=== PATIENT | female | born 1995 | race American Indian/Alaskan Native ===

== ENCOUNTER 2019-11-25 01:05 | Emergency (ER) | payer SELFPAY ==
[2019-11-25 01:16] VITALS: BP 110/72
[2019-11-25 03:44] LABS: Bacteria,Urine 1+ /HPF (Negative); Bilirubin,Urine NEG (Negative); Blood,Urine NEG (Negative); Color,Urine Yellow (Yellow); Mucus,Urine 1+ /HPF; Protein,Urine <15 mg/dL mg/dL (Negative); Urobilinogen,Urine < 2.0 mg/dL (<2.0)
[2019-11-25 03:46] LABS: HCG Qualitative,Urine Negative (Negative)
== END 2019-11-25 08:34 | disposition left against medical advice (07) ==
LOC: ED 01:05
DX: J45.909 Unspecified asthma, uncomplicated (principal); Z53.21 Procedure and treatment not carried out due to patient leaving prior to being seen by health care provider
CPT/HCPCS: 81001; 81025; 87086